=== PATIENT | male | born 1975 | race Hispanic/Latino ===

== ENCOUNTER 2016-11-09 11:09 | Emergency (ER) | payer OTHER ==
[2016-11-09 11:20] VITALS: BP 109/73; PULSE 87; RESP 16; TEMP 98.4; O2SAT 99
--- NOTE | 2016-11-09 11:41 | C.PDOC ---
History Of Present Illness Patient with history of chronic back pain pain to the lower back and bilateral knee pain over the several days. Patient is able to ambulatory but has pain in the knees. Patient denies fever, trauma, numbness, weakness, bowel/bladder incontinence. Time Seen by Provider: 11/09/16 11:28 Chief Complaint (Nursing): Back Pain History Per: Patient History/Exam Limitations: no limitations Current Symptoms Are (Timing): Still Present Quality Of Discomfort: "Pain" Severity: Mild Pain Scale Rating Of: 5 Previous Symptoms: Prior Injury (he "injured the knees several years") Exacerbating Factor(s): Movement Recent travel outside of the [place]: No Past Medical History Reviewed: Historical Data, Nursing Documentation, Vital Signs Vital Signs: Last Vital Signs Temp 98.4 F 11/09/16 11:19 Pulse 87 11/09/16 11:19 Resp 16 11/09/16 11:19 BP 109/73 11/09/16 11:19 Pulse Ox 99 11/09/16 11:51 - Medical History PMH: No Chronic Diseases Family History: States: No Known Family Hx - Social History Hx Alcohol Use: No Hx Substance Use: No - Immunization History Hx Influenza Vaccination: No Review Of Systems Except As Marked, All Systems Reviewed And Found Negative. Constitutional: Negative for: Fever, Chills Genitourinary: Negative for: Dysuria Musculoskeletal: Positive for: Back Pain, Other (knee pain) Physical Exam - Physical Exam Appears: Well, No Acute Distress Skin: Normal Color, Warm, No Rash Head: Atraumatic, Normacephalic Eye(s): bilateral: Normal Inspection, PERRL, EOMI Oral Mucosa: Moist Neck: Normal ROM, No Midline Cervical Tenderness, No Paracervical Tenderness, Supple Chest: Symmetrical, No Tenderness Cardiovascular: Rhythm Regular, No Friction Rub, No Murmur Respiratory: Normal Breath Sounds, No Rales, No Rhonchi, No Wheezing Gastrointestinal/Abdominal: Bowel Sounds (active), Soft, No Tenderness Back: No CVA Tenderness, No Vertebral Tenderness, No Paraspinal Tenderness Extremity: Capillary Refill (< 2 sec), No Deformity, Other (Bilateral knees: FROM, no swelling or tenderness) Extremity: Bilateral: Normal Color And Temperature Pulses: Left Dorsalis Pedis: Normal, Right Dorsalis Pedis: Normal Neurological/Psych: Oriented x3, Normal Speech, Normal Cranial Nerves, Normal Motor, Normal Sensation Gait: Steady ED Course And Treatment O2 Sat by Pulse Oximetry: 99 (on RA) Pulse Ox Interpretation: Normal Medical Decision Making Medical Decision Making: On re-exam, the patient reports improvement of symptoms. Lungs remain CTA, heart is RRR, ambulatory in the ED with steady gait. Patient has knees braces which he will use on the knee. Disposition - Disposition Referrals: [facility] [Outside] Disposition: HOME/ ROUTINE Disposition Time: 12:51 Condition: GOOD Additional Instructions: Follow up with the medical doctor within 1-2 days without fail, Return if worsened, Prescriptions: Cyclobenzaprine [Flexeril] 5 mg PO TID #21 tab Lidocaine 5% [Lidoderm] 1 patch TOP DAILY PRN #7 patch PRN Reason: Pain, Moderate (4-7) Naproxen [Naprosyn] 500 mg PO BID #20 tab Instructions: Arthritis (ED) - Clinical Impression Clinical Impression: Low back pain, Knee pain
--- NOTE | 2016-11-09 13:55 | RAD ---
PROCEDURE: Bilateral Knee Radiographs. HISTORY: BILATERAL KNEE PAIN AND ?SWELLING. No antecedent history of trauma provided. COMPARISON: None. FINDINGS: BONES: Right Knee: Normal. No fracture. Left Knee: Normal. No fracture. JOINTS: Right Knee: Normal. No osteoarthritis. Left knee: Normal. No osteoarthritis. SOFT TISSUES: Right Knee: Normal. Left Knee: Normal. JOINT EFFUSION: Right Knee: None. Left Knee: None. OTHER FINDINGS: None. IMPRESSION: No significant or acute findings to account for/ related to the clinical presentation.
== END 2016-11-09 13:13 | disposition home or self-care (01) ==
LOC: C.ER 11:09
DX: M54.5 Low back pain (principal); M25.562 Pain in left knee; M25.561 Pain in right knee
CPT/HCPCS: 73562; 96372; 99284; J1885

== ENCOUNTER 2017-01-09 16:03 | Emergency (ER) | payer MEDICAID ==
[2017-01-09 16:13] VITALS: BMI 18.8
[2017-01-09 16:14] VITALS: TEMP 99
[2017-01-09] MEDS ORDERED: Albuterol-Ipratrop 3 mg / 0.5 (3 ml) UD IH STA (17:10)
[2017-01-09] MEDS ORDERED: Albuterol-Ipratrop 3 mg / 0.5 (3 ml) UD ONE (17:42)
[2017-01-09 18:03] VITALS: BP 120/78; PULSE 74; RESP 16; O2SAT 100
--- NOTE | 2017-01-09 18:23 | C.PDOC ---
History Of Present Illness Pt c/o hiccups since last night. Time Seen by Provider: 01/09/17 16:37 Chief Complaint (Nursing): Shortness Of Breath History Per: Patient Onset/Duration Of Symptoms: Hrs (since last night) Current Symptoms Are (Timing): Still Present Exacerbating Factor(s): Coughing Current Respiratory Medications: See Home Med List Severity: Moderate Associated Symptoms: Productive Cough, Other (Hiccups) Reports Recently: Treated By A Physician Additional History Per: Prior Records Past Medical History Reviewed: Historical Data, Nursing Documentation, Vital Signs Vital Signs: Last Vital Signs Temp 99.0 F 01/09/17 16:18 Pulse 74 01/09/17 18:03 Resp 16 01/09/17 18:03 BP 120/78 01/09/17 18:03 Pulse Ox 100 01/09/17 18:03 - Medical History PMH: Arthritis, Bronchitis Surgical History: No Surg Hx Family History: States: Unknown Family Hx - Social History Hx Tobacco Use: Yes Hx Alcohol Use: No Hx Substance Use: No - Immunization History Hx Tetanus Toxoid Vaccination: No Hx Influenza Vaccination: No Hx Pneumococcal Vaccination: No Review Of Systems Except As Marked, All Systems Reviewed And Found Negative. Constitutional: Negative for: Fever, Weakness Cardiovascular: Negative for: Chest Pain Respiratory: Negative for: Hemoptysis Gastrointestinal: Negative for: Vomiting, Abdominal Pain Musculoskeletal: Negative for: Neck Pain, Back Pain Skin: Negative for: Rash Neurological: Negative for: Weakness, Numbness, Seizures, Altered Mental Status Physical Exam - Physical Exam Appears: Non-toxic, No Acute Distress Skin: Normal Color, Warm, Dry, No Rash Head: Atraumatic, Normacephalic Eye(s): bilateral: PERRL, EOMI Neck: Normal ROM, Supple Cardiovascular: Rhythm Regular Respiratory: No Accessory Muscle Use, Wheezing (mild) Gastrointestinal/Abdominal: Soft, No Tenderness Back: No CVA Tenderness Extremity: Normal ROM, No Pedal Edema, No Calf Tenderness Neurological/Psych: Oriented x3, Normal Speech, Normal Motor, Normal Sensation ED Course And Treatment O2 Sat by Pulse Oximetry: 100 Pulse Ox Interpretation: Normal - Radiology CXR: Interpreted by Me, Viewed By Me CXR Interpretation: Yes: Heart Size (wnl), COPD Progress - Interventions Interventions:: Observation - Medications Administered Oral: Corticosteriod, Other (Thorazine) Inhaled nebulized: Anticholinergic, Beta-2 agonist - Data Reviewed Data Reviewed: Diagnostic imaging, Old records - Patient Status Patient status: Mostly improved - Continuity of Care Discussed patient case with:: Patient, ED Nurse - Patient Plan Patient Plan: Discharge, F/U with PCP Disposition Counseled Patient/Family Regarding: Studies Performed, Diagnosis, Need For Followup, Rx Given, Smoking Cessation - Disposition Referrals: Sonny Gibson MD [Staff Provider] - Disposition: HOME/ ROUTINE Disposition Time: 18:23 Condition: IMPROVED Additional Instructions: Stop smoking. Follow up with your doctor within 3 days for further evaluation and treatment. Return to the ER if you develop fever, shortness of breath, chest pain, worsening of symptoms or if you have any other concerns. Prescriptions: Albuterol HFA [Ventolin HFA 90 mcg/actuation (8 g)] 2 puff IH Q4 PRN #1 unit PRN Reason: Wheezing predniSONE [predniSONE Tab] 2 tab PO DAILY #8 tab Instructions: Hiccups (ED), COPD (Chronic Obstructive Pulmonary Disease) (ED) - Clinical Impression Clinical Impression: COPD (chronic obstructive pulmonary disease), Hiccups
--- NOTE | 2017-01-10 09:14 | RAD ---
HISTORY: Cough, hiccups COMPARISON: 12/24/2016. TECHNIQUE: Chest PA and lateral FINDINGS: LUNGS: No active pulmonary disease. PLEURA: No significant pleural effusion identified. No pneumothorax apparent. CARDIOVASCULAR: Normal. OSSEOUS STRUCTURES: No significant abnormalities. VISUALIZED UPPER ABDOMEN: Normal. OTHER FINDINGS: None. IMPRESSION: No active disease. No significant interval change compared to the prior examination(s).
--- NOTE | 2017-02-02 08:00 | CARD ---
APPROVED REPORT EKG Measurement Heart [id number] <Conclusion> Normal sinus rhythm Possible Left atrial enlargement Left ventricular hypertrophy Abnormal ECG
== END 2017-01-09 18:31 | disposition home or self-care (01) ==
LOC: C.ER 16:03
DX: J44.9 Chronic obstructive pulmonary disease, unspecified (principal); R06.6 Hiccough; Z72.0 Tobacco use
CPT/HCPCS: 71020; 94640; 99284; Q0161

== ENCOUNTER 2017-05-17 06:50 | Day surgery (SDC) | payer MEDICAID ==
[2017-05-17 07:34] VITALS: BMI 17.4
[2017-05-17] MEDS ORDERED: Propofol 10 mg/ml Inj (20 ML) ONE ×2 (09:00)
[2017-05-17] MEDS ORDERED: Lidocaine Hydrochloride 5 ML INJ ONE (09:00)
[2017-05-17 09:33] VITALS: TEMP 97.1; O2SAT 100
[2017-05-17 10:17] VITALS: BP 98/65; PULSE 67; RESP 13
== END 2017-05-17 10:14 | disposition home or self-care (01) ==
LOC: C.ENDO 06:50
PROVIDERS: ATTEND Internal Medicine
DX: R63.4 Abnormal weight loss (principal); R10.84 Generalized abdominal pain; K92.1 Melena; K64.8 Other hemorrhoids
CPT/HCPCS: 43239; 45378; 88305; 88312; 88313; 88342; J2704; J3010

== ENCOUNTER 2017-05-21 12:33 | Emergency (ER) | payer MEDICAID ==
[2017-05-21 12:33] VITALS: BMI 17.4
[2017-05-21 12:51] VITALS: BP 96/63; PULSE 78; RESP 16; TEMP 97.1; O2SAT 98
--- NOTE | 2017-05-21 13:34 | C.PDOC ---
Time Seen by Provider: 05/21/17 13:17 Chief Complaint (Nursing): Abnormal Skin Integrity Past Medical History Vital Signs: Last Vital Signs Temp 97.1 F L 05/21/17 12:49 Pulse 78 05/21/17 12:49 Resp 16 05/21/17 12:49 BP 96/63 L 05/21/17 12:49 Pulse Ox 98 05/21/17 12:49 - Medical History PMH: Anxiety (NO MEDS.), Arthritis, Bronchitis, Emphysema, Kidney Stones (PASSE ON OWN), Chronic Kidney Disease Family History: States: Unknown Family Hx - Social History Hx Tobacco Use: Yes Hx Alcohol Use: No Hx Substance Use: No - Immunization History Hx Tetanus Toxoid Vaccination: No Hx Influenza Vaccination: No Hx Pneumococcal Vaccination: No ED Course And Treatment O2 Sat by Pulse Oximetry: 98 Medical Decision Making Medical Decision Making: mild pruritis morbiliform rash on chest and back but avoids sun-exposed areas. s/p upper and lower endoscopies 4 days ago, and CT Abd/Pelvis 2 days ago w IV contrast without acute - low susp of related complications. More likely related to pruritic exposure yesterday-helping clean a basement. Disposition Doctor Will See Patient In The: Office Counseled Patient/Family Regarding: Studies Performed, Diagnosis - Disposition Disposition: HOME/ ROUTINE Disposition Time: 13:34 Condition: GOOD - Clinical Impression Clinical Impression: Chronic pruritus, Rash and nonspecific skin eruption
== END 2017-05-21 13:50 | disposition home or self-care (01) ==
LOC: C.ER 12:33
DX: R21 Rash and other nonspecific skin eruption (principal); L29.9 Pruritus, unspecified

== ENCOUNTER 2017-11-17 12:18 | Emergency (ER) | payer MEDICAID ==
[2017-11-17 12:18] VITALS: BMI 17.4
[2017-11-17 12:51] VITALS: RESP 18
--- NOTE | 2017-11-17 13:28 | C.PDOC ---
History Of Present Illness 42 y/o male with history of COPD and arthritis presents to ED with complaints of epigastric and LUQ pain since yesterday with associated nausea worse when trying to eat. Patient states he has had similar episodes in the past and reports pain is better with movement. Patient did not take medication for pain and denies vomiting, diarrhea, fever, chills or any other complaints at this time. Time Seen by Provider: 11/17/17 13:06 Chief Complaint (Nursing): Abdominal Pain History Per: Patient History/Exam Limitations: no limitations Onset/Duration Of Symptoms: Days Current Symptoms Are (Timing): Still Present Location Of Pain/Discomfort: Epigastric, LUQ Quality Of Discomfort: "Pain" Associated Symptoms: Nausea Past Medical History Reviewed: Historical Data, Nursing Documentation, Vital Signs Vital Signs: Last Vital Signs Temp 98.1 F 11/17/17 12:40 Pulse 88 11/17/17 12:40 Resp 18 11/17/17 12:40 BP 104/68 11/17/17 12:40 Pulse Ox 99 11/17/17 13:31 - Medical History PMH: Anxiety (NO MEDS.), Arthritis, Bronchitis, Emphysema, Gastritis, Kidney Stones (PASSE ON OWN), Chronic Kidney Disease Surgical History: No Surg Hx Family History: States: No Known Family Hx - Social History Hx Tobacco Use: Yes Hx Alcohol Use: No Hx Substance Use: No - Immunization History Hx Tetanus Toxoid Vaccination: No Hx Influenza Vaccination: No Hx Pneumococcal Vaccination: No Review Of Systems Constitutional: Negative for: Fever, Chills Gastrointestinal: Positive for: Nausea, Abdominal Pain. Negative for: Vomiting , Diarrhea Musculoskeletal: Negative for: Back Pain Physical Exam - Physical Exam Appears: Non-toxic, No Acute Distress Skin: Warm, Dry, No Rash Head: Atraumatic, Normacephalic Oral Mucosa: Moist Neck: Normal ROM, Supple Cardiovascular: Rhythm Regular Respiratory: Normal Breath Sounds, No Rales, No Rhonchi, No Wheezing Gastrointestinal/Abdominal: Bowel Sounds (very quiet), Tenderness, No Distention , Guarding, No Rebound Back: No CVA Tenderness Extremity: Normal ROM, Capillary Refill (<2 seconds) Neurological/Psych: Oriented x3, Normal Speech ED Course And Treatment - Laboratory Results Result Diagrams: 11/17/17 13:30 11/17/17 13:30 Lab Interpretation: No Acute Changes O2 Sat by Pulse Oximetry: 99 (RA) Pulse Ox Interpretation: Normal - CT Scan/US CT abdomen and pelvis with po contrast Other Rad Studies (CT/US): Read By Radiologist, Radiology Report Reviewed CT/US Interpretation: Gastric antral mucosal thickening common nonspecific. The remainder of the examination is unremarkable. Reevaluation Time: 16:46 Reassessment Condition: Improved Medical Decision Making Medical Decision Making: Prior records reviewed: 05/19/18- CT abdomen/pelvis for weight loss , some circumferential thickening of rectal sigmoid colon, chronic diverticulosis Endoscopy done, with diagnosis of Gastritis Disposition Counseled Patient/Family Regarding: Studies Performed, Diagnosis, Need For Followup, Rx Given - Disposition Referrals: [facility] [Outside] Disposition: HOME/ ROUTINE Disposition Time: 16:47 Condition: IMPROVED Prescriptions: Pantoprazole Sodium [Protonix] 40 mg PO DAILY #14 ect Instructions: Gastritis, Cooper Diet Forms: [facility] ([place]ux[place]) - Clinical Impression Clinical Impression: Abdominal pain, Gastritis - Scribe Statement The provider has reviewed the documentation as recorded by the Peri Reinoso All medical record entries made by the Peri were at my direction and personally dictated by me. I have reviewed the chart and agree that the record accurately reflects my personal performance of the history, physical exam, medical decision making, and the department course for this patient. I have also personally directed, reviewed, and agree with the discharge instructions and disposition.
[2017-11-17] MEDS ORDERED: Iohexol 240 (50 ml) ONE (13:38)
[2017-11-17] MEDS ORDERED: Morphine 4 MG/ML VIAL ONE (13:38)
[2017-11-17] MEDS ORDERED: Sodium Chloride 0.9% 1,000 ML ONE (13:38)
[2017-11-17 13:43] LABS: BASO # 0.1 K/uL (0.0-0.2); BASO % 0.8 % (0.0-2.0); EOS % 0.3 % (0.0-4.0); HEMOGLOBIN 13.7 g/dL (12.0-18.0); LYMPH # 1.4 K/uL (1.0-4.3); LYMPH % 13.8 % (20.0-40.0); MEAN CELL VOLUME 86.8 fL (80.0-94.0); MEAN CORPUSCULAR HGB CONC 33.4 g/dL (33.0-37.0); MEAN PLATELET VOLUME 7.4 fL (7.2-11.7); MONO # 0.7 K/uL (0.0-0.8); MONO % 7.1 % (0.0-10.0); NEUT # 8.1 K/uL (1.8-7.0); RBC 4.73 Mil/uL (4.40-5.90); RED CELL DISTRIBUTION WIDTH 15.4 % (11.5-14.5); WHITE BLOOD COUNT 10.3 K/uL (4.8-10.8)
[2017-11-17] MEDS: Iohexol 240 (50 ml) PO STA (13:45)
[2017-11-17] MEDS: Sodium Chloride 0.9% 1,000 ML IV ONE (13:46)
[2017-11-17 13:54] LABS: ALB/GLOB RATIO 1.3 (1.0-2.1); ALBUMIN 4.2 g/dL (3.5-5.0); ALT/SGPT 22 U/L (21-72); AST/SGOT 25 U/L (17-59); BLOOD UREA NITROGEN 16 mg/dL (9-20); CALCIUM 9.7 mg/dl (8.6-10.4); GFR AFRICAN-AMERICAN > 60; GFR NON-AFRICAN AMERICAN > 60
[2017-11-17 14:15] LABS: LIPASE 110 U/L (23-300)
--- NOTE | 2017-11-17 16:20 | CT ---
PROCEDURE: CT Abdomen and Pelvis without intravenous contrast HISTORY: abdominal pain COMPARISON: 05/19/2017 TECHNIQUE: Without contrast.. Contrast Dose: 0 Radiation dose: Total exam DLP = Total exam DLP = 237.81 mGy-cm. This CT exam was performed using one or more of the following dose reduction techniques: Automated exposure control, adjustment of the mA and/or kV according to patient size, and/or use of iterative reconstruction technique. FINDINGS: LOWER THORAX: Unremarkable. LIVER: Unremarkable. No gross lesion or ductal dilatation. GALLBLADDER AND BILE DUCTS: Unremarkable. PANCREAS: Unremarkable. No gross lesion or ductal dilatation. SPLEEN: Unremarkable. ADRENALS: Unremarkable. No mass. KIDNEYS AND URETERS: Unremarkable. No hydronephrosis. No solid mass. VASCULATURE: Unremarkable. No aortic aneurysm. BOWEL: No bowel obstruction. Gastric antral mucosal thickening, nonspecific. APPENDIX: Unremarkable. Normal appendix. PERITONEUM: Unremarkable. No free fluid. No free air. LYMPH NODES: Unremarkable. No enlarged lymph nodes. BLADDER: Unremarkable. REPRODUCTIVE: Unremarkable prostate BONES: No acute fracture. OTHER FINDINGS: None. IMPRESSION: Gastric antral mucosal thickening common nonspecific. The remainder of the examination is unremarkable.
[2017-11-17 16:56] VITALS: BP 120/74; PULSE 74; TEMP 97.8
[2017-11-17 16:58] VITALS: O2SAT 99
== END 2017-11-17 16:56 | disposition home or self-care (01) ==
LOC: C.ER 12:18
DX: K29.70 Gastritis, unspecified, without bleeding (principal)
CPT/HCPCS: 74176; 80053; 83690; 85025; 96374; 96375; 99284; J2270; J7040; Q9966

== ENCOUNTER 2018-04-12 07:01 | Emergency (ER) | payer MEDICAID ==
[2018-04-12 07:01] VITALS: BMI 17.4
[2018-04-12 07:11] VITALS: O2SAT 99
--- NOTE | 2018-04-12 07:51 | RAD ---
PROCEDURE: Left Hand Radiographs. HISTORY: injury to the 2-3 fingers, swel PIP and MCP joints COMPARISON: None. FINDINGS: BONES: Normal. No fracture. JOINTS: Minimal osteoarthritic changes. SOFT TISSUES: Normal. OTHER FINDINGS: None. IMPRESSION: Minimal 2nd 3rd DIP joint arthrosis. No gross erosions seen.
--- NOTE | 2018-04-12 07:53 | C.PDOC ---
History Of Present Illness 42 year old male presents to the emergency department with complaints of pain to his left hand status-post tripping in the alleyway behind his apartment [facility]. Patient reports pain and swelling to the second, third, and fourth digits, but otherwise denies other injuries, numbness, weakness. - HPI Time Seen by Provider: 04/12/18 07:20 Chief Complaint (Nursing): Trauma History Per: Patient History/Exam Limitations: no limitations Onset/Duration Of Symptoms: Hrs Location Of Injury: Left: Hand Past Medical History Reviewed: Historical Data, Nursing Documentation, Vital Signs Vital Signs: Last Vital Signs Temp 97.6 F 04/12/18 07:31 Pulse 86 04/12/18 07:31 Resp 20 04/12/18 07:31 BP 121/70 04/12/18 07:31 Pulse Ox 99 04/12/18 07:59 - Medical History PMH: Anxiety (NO MEDS.), Arthritis, Bronchitis, Emphysema, Gastritis, Kidney Stones (PASSE ON OWN), Chronic Kidney Disease Surgical History: No Surg Hx Family History: States: No Known Family Hx - Social History Hx Tobacco Use: Yes Hx Alcohol Use: No Hx Substance Use: No - Immunization History Hx Tetanus Toxoid Vaccination: No Hx Influenza Vaccination: No Hx Pneumococcal Vaccination: No Review Of Systems Except As Marked, All Systems Reviewed And Found Negative. Musculoskeletal: Positive for: Hand Pain (left) Neurological: Negative for: Weakness, Numbness Physical Exam - Physical Exam Appears: Non-toxic, No Acute Distress Skin: Warm, Dry Head: Atraumatic, Normacephalic Eye(s): bilateral: Normal Inspection Neck: Normal, Supple Chest: Symmetrical Cardiovascular: Rhythm Regular Respiratory: Normal Breath Sounds Extremity: No Normal ROM (limited due to pain at the left hand), Tenderness (to the 2nd, 3rd, 4th, PIP and MCP joints of the left hand), Swelling (to the 2nd, 3rd, 4th PIP and MCP joints of the left hand) ED Course And Treatment O2 Sat by Pulse Oximetry: 99 (RA) Pulse Ox Interpretation: Normal Progress Note: Plan: Tylenol 650mg PO. XR Left Hand Disposition - Disposition Referrals: [facility] [Outside] Disposition: HOME/ ROUTINE Disposition Time: 08:17 Condition: GOOD Additional Instructions: Follow up with the Hand doctor within 1-2 days, Return if wrosened. 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 - Scribe Statement The provider has reviewed the documentation as recorded by the Scribe (Fawad Alas) All medical record entries made by the Scribe were at my direction and personally dictated by me. I have reviewed the chart and agree that the record accurately reflects my personal performance of the history, physical exam, medical decision making, and the department course for this patient. I have also personally directed, reviewed, and agree with the discharge instructions and disposition.
[2018-04-12 08:36] VITALS: BP 103/73; PULSE 73; RESP 16; TEMP 98.5
== END 2018-04-12 08:51 | disposition home or self-care (01) ==
LOC: C.ER 07:01
DX: S60.222A Contusion of left hand, initial encounter (principal); W01.0XXA Fall on same level from slipping, tripping and stumbling without subsequent striking against object, initial encounter

== ENCOUNTER 2018-05-30 16:16 | Emergency (ER) | payer MEDICAID ==
[2018-05-30 16:16] VITALS: BMI 17.4
[2018-05-30 16:26] VITALS: RESP 18
[2018-05-30] MEDS ORDERED: Sodium Chloride 0.9% 1,000 ML IV ONE (17:11)
--- NOTE | 2018-05-30 17:28 | C.PDOC ---
History Of Present Illness 42 year old male, whose PMHx includes Gastritis, presents to the ED for evaluation of epigastric abdominal pain associated with three episodes of vomiting since this morning. Patient reports his last vomitus was "dark colored." Patient admits, was able tolerate water at home. Patient denies fever, chills, recent illness or sick contact, denies neck pain, CP, SOB, dyspnea, diaphoresis, palpitation, diarrhea, change in appetite, back pain, UTI sx. Ambulate to Ed for evaluation, not in any apparent distress. <Tanya Little - Last Filed: 05/30/18 18:48> History Per: Patient History/Exam Limitations: no limitations Onset/Duration Of Symptoms: Hrs Current Symptoms Are (Timing): Still Present Location Of Pain/Discomfort: Epigastric Radiation Of Pain To:: None Quality Of Discomfort: "Pain" Associated Symptoms: Vomiting. denies: Fever, Chills, Diarrhea Additional History Per: Patient <Tanya Little - Last Filed: 05/30/18 18:48> <Eliana Varela - Last Filed: 05/30/18 19:38> Time Seen by Provider: 05/30/18 16:53 Chief Complaint (Nursing): GI Problem Past Medical History Reviewed: Historical Data, Nursing Documentation, Vital Signs Vital Signs: Last Vital Signs Temp 98.1 F 05/30/18 16:22 Pulse 107 H 05/30/18 16:22 Resp 18 05/30/18 16:22 BP 104/62 05/30/18 16:22 Pulse Ox 98 05/30/18 16:22 - Medical History PMH: Anxiety (NO MEDS.), Arthritis, Bronchitis, Emphysema, Gastritis, Kidney Stones (PASSE ON OWN), Chronic Kidney Disease Surgical History: No Surg Hx Family History: States: Unknown Family Hx - Social History Hx Tobacco Use: Yes Hx Alcohol Use: No (former) Hx Substance Use: No - Immunization History Hx Tetanus Toxoid Vaccination: No Hx Influenza Vaccination: No Hx Pneumococcal Vaccination: No <Tanya Little - Last Filed: 05/30/18 18:48> Vital Signs: Last Vital Signs Temp 99.4 F 05/30/18 19:22 Pulse 99 H 05/30/18 19:22 Resp 18 05/30/18 19:22 BP 105/62 05/30/18 19:22 Pulse Ox 99 05/30/18 19:22 <Eliana Varela - Last Filed: 05/30/18 19:38> Review Of Systems Constitutional: Negative for: Fever, Chills Gastrointestinal: Positive for: Vomiting, Abdominal Pain (epigastric ). Negative for: Diarrhea <Tanya Little - Last Filed: 05/30/18 18:48> Physical Exam - Physical Exam Appears: Non-toxic, No Acute Distress Skin: Normal Color, Warm, Dry Head: Normacephalic Eye(s): bilateral: PERRL Nose: No Flaring Oral Mucosa: Moist Throat: No Erythema, No Drooling Neck: Trachea Midline, Supple Chest: Symmetrical, No Deformity, No Tenderness Cardiovascular: Rhythm Regular, No Murmur, No JVD Respiratory: No Decreased Breath Sounds, No Accessory Muscle Use, No Rales, No Rhonchi, No Stridor, No Wheezing Gastrointestinal/Abdominal: Soft, Tenderness (epigastric ), No Distention, No Guarding, No Rebound Back: No CVA Tenderness Extremity: Normal ROM, No Pedal Edema, Capillary Refill (less than 2 seconds ), No Swelling Neurological/Psych: Oriented x3, Normal Speech, Normal Cognition <Tanya Little - Last Filed: 05/30/18 18:48> ED Course And Treatment - Laboratory Results Result Diagrams: 05/30/18 17:42 05/30/18 17:42 ECG: Interpreted By Me, Viewed By Me ECG Rhythm: Sinus Rhythm Interpretation Of ECG: SR@88/min, NAD, NAD, no acute T wave or ST-T changes O2 Sat by Pulse Oximetry: 98 Pulse Ox Interpretation: Normal - Radiology CXR: Interpreted by Me, Viewed By Me CXR Interpretation: Yes: No Acute Disease Progress Note: Bloodwork, urinalysis, CT A/P, EKG, CXR ordered and reviewed. Pepcid IVP, Zofran IVP, Protonix IVP and IV Fluids given. Pt remained tsable during the ED evaluation. Blood work review, mild leukocytosis with left shift. CMP- normal, no dehydration or elect abn. CT A/P- pending. case sign out to . <Tanya Little - Last Filed: 05/30/18 18:48> - Laboratory Results Result Diagrams: 05/30/18 17:42 05/30/18 17:42 Pulse Ox Interpretation: Normal Reevaluation Time: 19:35 Reassessment Condition: Improved <Eliana Varela - Last Filed: 05/30/18 19:38> Disposition - Disposition Disposition Time: 19:00 <Tanya Little - Last Filed: 05/30/18 18:48> Counseled Patient/Family Regarding: Studies Performed, Diagnosis, Need For Followup, Rx Given <Eliana Varela - Last Filed: 05/30/18 19:38> - Disposition Referrals: Sonny Gibson MD [Staff Provider] - Condition: FAIR Additional Instructions: Please return if symptoms recur Prescriptions: Metronidazole [Flagyl] 500 mg PO TID #21 tablet Ondansetron ODT [Zofran ODT] 1 odt PO BID PRN #6 odt PRN Reason: Nausea/Vomiting Instructions: Acute Abdomen (Belly Pain), Adult (DC), Nausea and Vomiting, Adult, Gastritis (DC) Forms: [facility] (Yakut) - Clinical Impression Clinical Impression: Abdominal pain, Vomiting, Gastritis, Nausea & vomiting - 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 - Scribe Statement The provider has reviewed the documentation as recorded by the Scribe (Smita Arnold) All medical record entries made by the Scribe were at my direction and personally dictated by me. I have reviewed the chart and agree that the record accurately reflects my personal performance of the history, physical exam, medical decision making, and the department course for this patient. I have also personally directed, reviewed, and agree with the discharge instructions and disposition. <Tanya Little - Last Filed: 05/30/18 18:48> Physician Patient Turnover Patient Signed Over To: Eliana Varela Handoff Comments: CT a/p, re-eval, dispo <Tanya Little - Last Filed: 05/30/18 18:48>
[2018-05-30] MEDS ORDERED: Sodium Chloride 0.9% 1,000 ML ONE (17:29)
[2018-05-30 17:46] LABS: BASO # 0.1 K/uL (0.0-0.2); BASO % 0.3 % (0.0-2.0); EOS % 0.2 % (0.0-4.0); LYMPH # 0.5 K/uL (1.0-4.3); LYMPH % 3.3 % (20.0-40.0); MEAN CELL VOLUME 86.6 fL (80.0-94.0); MEAN CORPUSCULAR HEMOGLOBIN 28.1 pg (27.0-31.0); MEAN CORPUSCULAR HGB CONC 32.4 g/dL (33.0-37.0); MONO # 0.5 K/uL (0.0-0.8); MONO % 3.2 % (0.0-10.0); NEUT # 13.4 K/uL (1.8-7.0); PLATELET COUNT 482 K/uL (130-400); RED CELL DISTRIBUTION WIDTH 14.5 % (11.5-14.5); WHITE BLOOD COUNT 14.4 K/uL (4.8-10.8)
[2018-05-30 17:55] LABS: INR 1.2; PROTHROMBIN TIME 12.8 SECONDS (9.7-12.2)
[2018-05-30 18:03] LABS: ALB/GLOB RATIO 1.7 (1.0-2.1); ALBUMIN 4.6 g/dL (3.5-5.0); ALT/SGPT 27 U/L (21-72); AST/SGOT 29 U/L (17-59); BLOOD UREA NITROGEN 14 mg/dL (9-20); CALCIUM 9.9 mg/dl (8.6-10.4); GFR NON-AFRICAN AMERICAN > 60; LIPASE 85 U/L (23-300)
[2018-05-30 18:11] LABS: SQUAMOUS EPITHIAL 1 /hpf (0-5); URINE BILIRUBIN 1+ (NEGATIVE); URINE BLOOD NEGATIVE (NEGATIVE); URINE CLARITY Clear (Clear); URINE COLOR Amber (YELLOW); URINE GLUCOSE (UA) NORMAL (Normal); URINE LEUKOCYTE ESTERASE NEG Leu/uL (Negative); URINE PROTEIN NEGATIVE (NEGATIVE)
[2018-05-30 18:29] LABS: BARBITURATES, UR NEGATIVE (NEGATIVE); BENZODIAZEPINES, UR NEGATIVE (NEGATIVE); OPIATES, UR NEGATIVE (NEGATIVE); PHENCYCLIDINE, UR NEGATIVE (NEGATIVE)
[2018-05-30] MEDS ORDERED: Iodixanol 320 MG/ML 100 ML BOTTLE IV ONE (18:42)
[2018-05-30 19:09] LABS: LYMPHOCYTE 5 % (20-40); MONOCYTE 2 % (0-10); NEUTROPHIL 93 % (50-75); PLATELET ESTIMATE SLIGHTLY INCREASED (NORMAL); TOTAL CELLS COUNTED 100
[2018-05-30 19:10] LABS: LARGE PLATELETS PRESENT; MICROCYTOSIS SLIGHT
[2018-05-30 19:23] VITALS: PULSE 99; TEMP 99.4
[2018-05-30 20:08] VITALS: BP 106/66; O2SAT 98
--- NOTE | 2018-05-31 08:45 | CT ---
Date of service: 05/30/2018 PROCEDURE: CT Abdomen and Pelvis with intravenous contrast HISTORY: Abdominal pain COMPARISON: None. TECHNIQUE: Multiple contiguous axial images were performed through the abdomen and pelvis with the use of intravenous contrast. Subsequently, sagittal and coronal reformatted images were obtained. Radiation dose: Total exam DLP = 214 mGy-cm. This CT exam was performed using one or more of the following dose reduction techniques: Automated exposure control, adjustment of the mA and/or kV according to patient size, and/or use of iterative reconstruction technique. FINDINGS: LOWER THORAX: Unremarkable. LIVER: Unremarkable. No gross lesion or ductal dilatation. Punctate hypodensity in the right hepatic lobe on series 3, image 27, too small to adequately characterize. GALLBLADDER AND BILE DUCTS: Unremarkable. PANCREAS: Unremarkable. No gross lesion or ductal dilatation. SPLEEN: Unremarkable. ADRENALS: Mild nodular thickening of the left adrenal gland. KIDNEYS AND URETERS: Unremarkable. No hydronephrosis. No solid mass. VASCULATURE: Unremarkable. No aortic aneurysm. BOWEL: Diffuse thickening of bowel loops seen throughout the abdomen most prominent at the level of the small bowel concerning for enteritis. Mild gastric wall thickening. Scattered colonic diverticuli. Mild thickening versus underdistention of the ascending and transverse colon. APPENDIX: Not well visualized. PERITONEUM: Unremarkable. No free fluid. No free air. LYMPH NODES: Few shotty para-aortic and inguinal lymph nodes. Few shotty mesenteric lymph nodes. BLADDER: Unremarkable. REPRODUCTIVE: Prominent prostate measuring up to 5.2 centimeters containing calcifications. Prominent seminal vesicles. BONES: No acute fracture. OTHER FINDINGS: None. IMPRESSION: Mild diffuse thickening of bowel loops seen throughout the abdomen most prominent at the level of the small bowel concerning for possible enteritis, possibly secondary to an acute infectious and or inflammatory process. Clinical correlation. Mild gastric wall thickening. Clinical correlation. Scattered colonic diverticuli. Mild thickening versus underdistention of the ascending and transverse colon. Clinical correlation. Prominent prostate measuring up to 5.2 centimeters containing calcifications. Prominent seminal vesicles. Clinical correlation. Additional findings as above. These findings were preliminarily reported at 7:31 p.m. on 05/30/[address] Tr Crockett from [facility].
--- NOTE | 2018-05-31 09:39 | RAD ---
Date of service: 05/30/2018 HISTORY: Abdominal pain COMPARISON: 01/09/2017 TECHNIQUE: Chest PA and lateral FINDINGS: LUNGS: No active pulmonary disease. Biapical pleural thickening. PLEURA: No significant pleural effusion identified. No pneumothorax apparent. CARDIOVASCULAR: Normal. OSSEOUS STRUCTURES: No significant abnormalities. VISUALIZED UPPER ABDOMEN: Normal. OTHER FINDINGS: None. IMPRESSION: No active disease.
--- NOTE | 2018-05-31 20:21 | CARD ---
APPROVED REPORT Date of service: 05/30/2018 EKG Measurement Heart [id number] CO [id number] [id number] <Conclusion> Normal sinus rhythm Possible Left atrial enlargement Borderline ECG
== END 2018-05-30 20:08 | disposition home or self-care (01) ==
LOC: C.ER 16:16
DX: K29.70 Gastritis, unspecified, without bleeding (principal); R11.2 Nausea with vomiting, unspecified; R10.13 Epigastric pain; Z72.0 Tobacco use
CPT/HCPCS: 71046; 74177; 80053; 80324; 80345; 80346; 80349; 80353; 80358; 80361; 81001; 83690; 83992; 85025; 85610; 85730; 93005; 96361; 96374; 96375; 99285; C9113; J2405; J2765; J7030; Q9967

== ENCOUNTER 2018-07-19 08:37 | Emergency (ER) | payer MEDICAID ==
[2018-07-19 09:04] VITALS: BMI 16.9
[2018-07-19 09:10] VITALS: BP 104/71; PULSE 90; RESP 20; TEMP 98.2; O2SAT 100
--- NOTE | 2018-07-19 09:23 | C.PDOC ---
History Of Present Illness 43 y/o male presents to the ED complaining of left ankle swelling and pain for 1 week. Patient states while running across the street he accidentally jammed it into the curb. Now complaining of persistent pain, worse with weight bearing and movement. Denies any other injury, numbness, or tingling. Time Seen by Provider: 07/19/18 09:10 Chief Complaint (Nursing): Lower Extremity Problem/Injury History Per: Patient History/Exam Limitations: no limitations Onset/Duration Of Symptoms: Days Current Symptoms Are (Timing): Still Present Past Medical History Reviewed: Historical Data, Nursing Documentation, Vital Signs Vital Signs: Last Vital Signs Temp 98.2 F 07/19/18 09:04 Pulse 90 07/19/18 09:04 Resp 20 07/19/18 09:04 BP 104/71 07/19/18 09:04 Pulse Ox 100 07/19/18 09:04 - Medical History PMH: Anxiety (NO MEDS.), Arthritis, Bronchitis, Emphysema, Gastritis, Kidney Stones (PASSE ON OWN), Chronic Kidney Disease Family History: States: Unknown Family Hx - Social History Hx Tobacco Use: Yes Hx Alcohol Use: No (former) Hx Substance Use: No - Immunization History Hx Tetanus Toxoid Vaccination: No Hx Influenza Vaccination: No Hx Pneumococcal Vaccination: No Review Of Systems Except As Marked, All Systems Reviewed And Found Negative. Musculoskeletal: Positive for: Foot Pain (ankle pain/swelling) Skin: Negative for: Lesions, Bruising Neurological: Negative for: Weakness, Numbness, Incoordination Physical Exam - Physical Exam Appears: Well, Non-toxic, No Acute Distress Skin: Warm, Dry Head: Atraumatic, Normacephalic Eye(s): bilateral: Normal Inspection Oral Mucosa: Moist Neck: Normal ROM Chest: Symmetrical Respiratory: No Accessory Muscle Use, Other (NARD) Extremity: Normal ROM (with AROM of left ankle with pain), Tenderness (To the left lateral malleolus), No Deformity, Swelling (To the left lateral malleolus), Other (+ ecchymosis above the left lateral malleolus, skin intact; no erythema) Pulses: Left Dorsalis Pedis: Normal, Right Dorsalis Pedis: Normal Neurological/Psych: Oriented x3, Normal Motor, Normal Sensation, Other (Neurologically intact, no focal deficits) ED Course And Treatment O2 Sat by Pulse Oximetry: 100 (RA) Pulse Ox Interpretation: Normal - Other Rad L ANKLE X-Ray: Interpreted by Me (NEG) L FOOT X-Ray: Interpreted by Me (NEG) Reevaluation Time: 09:53 Reassessment Condition: Improved (DOES NOT WANT PAIN MEDS AT THIS TIME) Medical Decision Making Medical Decision Making: Impression: Left ankle injury Plan: --Left ankle x-ray --Left foot x-ray Progress: X-ray results discussed with patient. Left ankle air cast applied. Counseled regarding diagnosis and follow up instructions. Disposition Counseled Patient/Family Regarding: Studies Performed, Diagnosis, Need For Foll owup, Rx Given - Disposition Referrals: [facility] [Outside] [facility] [Outside] [facility] [Other] Disposition: HOME/ ROUTINE Disposition Time: 09:41 Condition: IMPROVED Prescriptions: Ibuprofen [Motrin] 600 mg PO Q6 #30 tab Instructions: Ankle Sprain (DC) Forms: [employer] (Sami) - Clinical Impression Clinical Impression: Ankle sprain - Scribe Statement The provider has reviewed the documentation as recorded by the Peri Fernandes Provider Attestation: All medical record entries made by the Shondaibwilliam were at my direction and personally dictated by me. I have reviewed the chart and agree that the record accurately reflects my personal performance of the history, physical exam, medical decision making, and the department course for this patient. I have also personally directed, reviewed, and agree with the discharge instructions and disposition. Orthopedic Care Application Of:: Ankle Air Cast
--- NOTE | 2018-07-19 11:49 | RAD ---
Date of service: 07/19/2018 PROCEDURE: Left Foot Radiographs. HISTORY: TRAUMA COMPARISON: None. FINDINGS: BONES: . No fracture. Small medial exostosis benign-appearing great toe distal phalanx JOINTS: Minimal 1st metatarsal-phalangeal joint space narrowing SOFT TISSUES: Normal. OTHER FINDINGS: None. IMPRESSION: No fracture or dislocation. Other findings as above.
--- NOTE | 2018-07-19 11:50 | RAD ---
Date of service: 07/19/2018 PROCEDURE: Left Ankle Radiographs. HISTORY: TRAUMA COMPARISON: None available. FINDINGS: BONES: No fracture appreciated. Benign-appearing sclerotic cystic focus medial malleolus-6 mm in size JOINTS: Normal. No osteoarthritis. Ankle mortise maintained. Talar dome intact SOFT TISSUES: Increased density-inferred deep soft tissue edema possible small tibiotalar anterior joint effusion possible Lateral perimalleolar soft tissue swelling. OTHER FINDINGS: None. IMPRESSION: No fracture or dislocation is suggested. Mild soft tissue swelling in the area of interest is noted. Other findings as above.
== END 2018-07-19 10:02 | disposition home or self-care (01) ==
LOC: C.ER 08:37
DX: S93.402A Sprain of unspecified ligament of left ankle, initial encounter (principal); W23.1XXA Caught, crushed, jammed, or pinched between stationary objects, initial encounter; Y93.02 Activity, running; Y92.410 Unspecified street and highway as the place of occurrence of the external cause